=== PATIENT | female | born 1995 | race Caucasian/White ===

== ENCOUNTER 2016-09-13 23:16 | Emergency (ER) | payer OTHER ==
[~2016-09-13] VITALS: Ht 165.1 cm; Wt 71.0 kg
[2016-09-14] MEDS ORDERED: SODIUM CHLORIDE 0.9% 1,000 ML IV ONE (01:05)
[2016-09-14] MEDS ORDERED: ONDANSETRON HCL 4MG/2ML VIAL IV STA (01:05)
[2016-09-14] MEDS ORDERED: KETOROLAC 30MG/ML VIAL IV STA (01:05)
[2016-09-14] MEDS ORDERED: DIPHENHYDRAMINE 50MG/ML VIAL IV ONE (01:15)
[2016-09-14 01:26] LABS: CHLORIDE 106 mEq/L (98-107); INDEX HEMOLYSI 1 (1-3); INDEX ICTERIC 1 (1-4); INDEX LIPEMIC 1 (1-3)
[2016-09-14 01:28] LABS: BASOPHILS % 0.7 % (0.0-2.0); EOSINOPHILS % 5.3 % (0.0-5.0); HEMOGLOBIN. 14.4 g/dL (12.0-16.0); LYMPHOCYTES % 34.6 % (20.0-50.0); MEAN CORPUSCULAR HEMOGLOBIN 29.3 pg (28.0-32.0); MEAN CORPUSCULAR HGB CONC 33.4 g/dL (31.0-37.0); MEAN CORPUSCULAR VOLUME 87.8 fL (81.0-99.0); MEAN PLATELET VOLUME 7.5 fl (7.4-10.4); MONOCYTES % 8.7 % (2.0-8.0); NEUTROPHILS % 50.7 % (40.0-76.0); PLATELET 269 x1000/uL (130-400); RED BLOOD CELL COUNT 4.89 mill/uL (4.2-5.4); RED CELL DISTRIBUTION WIDTH 13.3 % (11.6-14.6); WHITE BLOOD COUNT 9.8 x1000/uL (4.5-11.0)
[2016-09-14 01:32] LABS: HCG SCREEN NEGATIVE
[2016-09-14 01:35] LABS: ALANINE AMINOTRANSFERASE 40 IU/L (13-61); ALBUMIN 3.6 g/dL (3.4-5.0); ANION GAP 12; CALCIUM 8.8 mg/dL (8.5-10.1); CARBON DIOXIDE 30 mEq/L (21-32); UREA NITROGEN BLOOD 11 mg/dL (7-21); eGFR > 60 mL/min (>60)
[2016-09-14 04:22] VITALS: BP 107/66
== END 2016-09-14 04:00 | disposition home or self-care (01) ==
LOC: ER 23:16
DX: R07.9 Chest pain, unspecified (principal); R51 Headache; R42 Dizziness and giddiness; R06.02 Shortness of breath; R53.1 Weakness
CPT/HCPCS: 36415; 71010; 80053; 84703; 85025; 93005; 96374; 96375; 99285; J1200; J1885; J2405; J7030; Z7610

== ENCOUNTER 2017-03-22 21:44 | Emergency (ER) | payer OTHER ==
[~2017-03-22] VITALS: Ht 134.6 cm; Wt 79.5 kg
[2017-03-23] MEDS ORDERED: SODIUM CHLORIDE 0.9% 1,000 ML IV ONE (00:02)
[2017-03-23] MEDS ORDERED: FAMOTIDINE 20MG/2ML VIAL IV STA (00:02)
[2017-03-23] MEDS ORDERED: ONDANSETRON 4MG ODT PO STA (00:02)
[2017-03-23] MEDS ORDERED: HYDROCODONE/ACETAMINOPHEN 5/325MG TABLET PO STA (00:02)
[2017-03-23] MEDS ORDERED: MAGNESIUM/ALUMINUM HYDROXIDE/SIMETHICONE 30ML UDC PO STA (00:02)
[2017-03-23 00:20] LABS: BASOPHILS % 0.7 % (0.0-2.0); EOSINOPHILS % 2.1 % (0.0-5.0); HEMATOCRIT. 42.8 % (36.0-48.0); HEMOGLOBIN. 14.6 g/dL (12.0-16.0); LYMPHOCYTES % 45.2 % (20.0-50.0); MEAN CORPUSCULAR HEMOGLOBIN 30.1 pg (28.0-32.0); MEAN CORPUSCULAR VOLUME 87.8 fL (81.0-99.0); MEAN PLATELET VOLUME 7.4 fl (7.4-10.4); MONOCYTES % 8.8 % (2.0-8.0); NEUTROPHILS % 43.2 % (40.0-76.0); PLATELET 249 x1000/uL (130-400); RED BLOOD CELL COUNT 4.87 mill/uL (4.2-5.4); RED CELL DISTRIBUTION WIDTH 13.1 % (11.6-14.6)
[2017-03-23 00:25] LABS: CHLORIDE 107 mEq/L (98-107)
[2017-03-23 00:35] LABS: B-HCG QUANTITATIVE < 1 mIU/mL (<3); CARBON DIOXIDE 29 mEq/L (21-32)
[2017-03-23 01:42] LABS: INR 1.1
[2017-03-23 02:09] LABS: GLUCOSE URINE NEGATIVE (NEGATIVE); KETONES URINE NEGATIVE (NEGATIVE); LEUKOCYTE ESTERASE URINE 2+ (NEGATIVE); NITRITE URINE NEGATIVE (NEGATIVE); OCCULT BLOOD URINE NEGATIVE (NEGATIVE); PH URINE 6.5 (4.5-8.0); PROTEIN URINE NEGATIVE (NEGATIVE); SPECIFIC GRAVITY URINE 1.023 (1.005-1.030)
[2017-03-23 02:11] LABS: CLARITY URINE CLOUDY (CLEAR); COLOR URINE YELLOW (YELLOW)
[2017-03-23] MEDS ORDERED: METOCLOPRAMIDE HCL 10MG/2ML VIAL IV ONE (02:15)
[2017-03-23 03:15] VITALS: BP 107/66
== END 2017-03-23 03:15 | disposition home or self-care (01) ==
LOC: ER 22:11
DX: R10.13 Epigastric pain (principal); R07.2 Precordial pain
CPT/HCPCS: 36415; 80053; 81001; 83690; 84702; 85025; 85610; 87077; 87086; 87186; 93005; 96361; 96374; 96375; 99285; J2765; J3490; J7030; Q0162; Z7610

== ENCOUNTER → 2017-03-31 | Emergency (ER) | payer OTHER ==
[~2017-03-31] VITALS: Ht 165.1 cm; Wt 82.0 kg
[~2017-03-31] MED LIST: DICYCLOMINE 10 MG/5 ML ORAL SYR PO STA; MAGNESIUM/ALUMINUM HYDROXIDE/SIMETHICONE 30ML UDC PO STA; ONDANSETRON 4MG ODT PO STA; VISCOUS LIDOCAINE 2% 15 ML UDC PO STA
[2017-03-31 20:52] VITALS: BP 123/84
[2017-03-31 22:09] LABS: CLARITY URINE CLOUDY (CLEAR); COLOR URINE YELLOW (YELLOW); GLUCOSE URINE NEGATIVE (NEGATIVE); KETONES URINE NEGATIVE (NEGATIVE); LEUKOCYTE ESTERASE URINE 2+ (NEGATIVE); NITRITE URINE NEGATIVE (NEGATIVE); OCCULT BLOOD URINE NEGATIVE (NEGATIVE); PH URINE 7.5 (4.5-8.0); PROTEIN URINE TRACE (NEGATIVE)
[2017-03-31 23:28] LABS: BASOPHILS % 0.8 % (0.0-2.0); EOSINOPHILS % 3.1 % (0.0-5.0); HEMATOCRIT. 43.2 % (36.0-48.0); HEMOGLOBIN. 14.7 g/dL (12.0-16.0); LYMPHOCYTES % 41.1 % (20.0-50.0); MEAN CORPUSCULAR HEMOGLOBIN 29.9 pg (28.0-32.0); MEAN CORPUSCULAR VOLUME 88.1 fL (81.0-99.0); MEAN PLATELET VOLUME 7.3 fl (7.4-10.4); MONOCYTES % 8.9 % (2.0-8.0); NEUTROPHILS % 46.1 % (40.0-76.0); PLATELET 253 x1000/uL (130-400); RED CELL DISTRIBUTION WIDTH 13.1 % (11.6-14.6)
[2017-03-31 23:34] LABS: INR 1.1
[2017-03-31 23:35] LABS: CHLORIDE 106 mEq/L (98-107)
[2017-03-31 23:36] LABS: HCG SCREEN NEGATIVE
[2017-03-31 23:46] LABS: CARBON DIOXIDE 29 mEq/L (21-32)
== END ==
LOC: ER 20:48
DX: N39.0 Urinary tract infection, site not specified (principal); R51 Headache; R19.7 Diarrhea, unspecified; R42 Dizziness and giddiness
CPT/HCPCS: 36415; 76705; 80053; 81001; 83690; 84703; 85025; 85610; 99285

== ENCOUNTER 2017-08-04 08:40 | Emergency (ER) | payer OTHER ==
[~2017-08-04] VITALS: Ht 165.1 cm; Wt 82.0 kg
[2017-08-04 11:22] LABS: CLARITY URINE CLEAR (CLEAR); COLOR URINE YELLOW (YELLOW); KETONES URINE NEGATIVE (NEGATIVE); LEUKOCYTE ESTERASE URINE 2+ (NEGATIVE); NITRITE URINE NEGATIVE (NEGATIVE); OCCULT BLOOD URINE TRACE (NEGATIVE); PROTEIN URINE NEGATIVE (NEGATIVE); SPECIFIC GRAVITY URINE 1.023 (1.005-1.030); UROBILINOGEN URINE 0.2 E.U./dL (0.2-1.0)
[2017-08-04] MEDS ORDERED: IBUPROFEN 600MG TABLET PO ONE (14:00)
[2017-08-04 16:52] VITALS: BP 100/62
== END 2017-08-04 16:52 | disposition home or self-care (01) ==
LOC: ER 09:30
DX: N39.0 Urinary tract infection, site not specified (principal)
CPT/HCPCS: 81003; 81025; 87086; 87210; 99284

== ENCOUNTER 2018-03-11 21:32 | Observation (INO) | payer OTHER ==
[~2018-03-11] VITALS: Ht 162.6 cm; Wt 82.1 kg
[2018-03-11] MEDS ORDERED: PNV1TABL50 MT (22:36)
[2018-03-11] MEDS ORDERED: FOLI0.4T2 MT (22:36)
== END 2018-03-11 22:00 ==
LOC: L&D 21:32
PROVIDERS: ADMIT Obstetrics & Gynecology; ATTEND Obstetrics & Gynecology
DX: O99.512 Diseases of the respiratory system complicating pregnancy, second trimester (principal); R07.89 Other chest pain; R06.02 Shortness of breath; R10.13 Epigastric pain; R51 Headache; M54.5 Low back pain; Z3A.22 22 weeks gestation of pregnancy
CPT/HCPCS: 99281; G0378

== ENCOUNTER 2018-03-11 22:14 | Emergency (ER) | payer OTHER ==
[~2018-03-11] VITALS: Ht 162.6 cm; Wt 82.0 kg
[2018-03-11] MEDS ORDERED: PNV1TABL50 MT (22:36)
[2018-03-11] MEDS ORDERED: FOLI0.4T2 MT (22:36)
[2018-03-11] MEDS ORDERED: ONDANSETRON HCL 4MG/2ML INJ IV STA (22:49)
[2018-03-11] MEDS ORDERED: MORPHINE SULFATE 4 MG/ML CPJ (NOT FOR IM USE) IV STA (22:49)
[2018-03-11] MEDS ORDERED: SODIUM CHLORIDE 0.9% 1,000 ML IV ONE (22:49)
[2018-03-11] MEDS ORDERED: FAMOTIDINE 20MG/2ML VIAL IV ONE (23:00)
[2018-03-11] MEDS ORDERED: MAGNESIUM/ALUMINUM HYDROXIDE/SIMETHICONE 30ML UDC PO ONE (23:00)
[2018-03-11 23:27] LABS: BASOPHILS % 0.2 % (0.0-2.0); EOSINOPHILS % 1.4 % (0.0-5.0); HEMOGLOBIN. 13.8 g/dL (12.0-16.0); MEAN CORPUSCULAR HEMOGLOBIN 29.8 pg (28.0-32.0); MEAN CORPUSCULAR VOLUME 88.1 fL (81.0-99.0); MEAN PLATELET VOLUME 8.2 fl (7.4-10.4); MONOCYTES % 7.8 % (2.0-8.0); NEUTROPHILS % 72.6 % (40.0-76.0); PLATELET 220 x1000/uL (130-400); RED BLOOD CELL COUNT 4.65 mill/uL (4.2-5.4); RED CELL DISTRIBUTION WIDTH 14.1 % (11.6-14.6)
[2018-03-11 23:32] LABS: CHLORIDE 104 mEq/L (98-107)
[2018-03-11 23:42] LABS: B-HCG QUANTITATIVE 511 mIU/mL (<3)
[2018-03-11 23:53] LABS: PARTIAL THROMBOPLASTIN TIME 27.3 sec (23.4-31.0); PROTHROMBIN TIME 9.9 sec (9.1-11.1)
[2018-03-11 23:59] LABS: CLARITY URINE CLOUDY (CLEAR); COLOR URINE YELLOW (YELLOW); KETONES URINE NEGATIVE (NEGATIVE); LEUKOCYTE ESTERASE URINE TRACE (NEGATIVE); NITRITE URINE NEGATIVE (NEGATIVE); OCCULT BLOOD URINE 1+ (NEGATIVE); PH URINE 8.5 (4.5-8.0); PROTEIN URINE NEGATIVE (NEGATIVE); SPECIFIC GRAVITY URINE 1.007 (1.005-1.030); UROBILINOGEN URINE 0.2 E.U./dL (0.2-1.0)
[2018-03-12 01:50] VITALS: BP 110/63
== END 2018-03-12 01:50 | disposition home or self-care (01) ==
LOC: ER 22:14
DX: O26.892 Other specified pregnancy related conditions, second trimester (principal); R10.13 Epigastric pain; R11.0 Nausea; Z3A.22 22 weeks gestation of pregnancy
CPT/HCPCS: 36415; 76705; 76815; 80053; 81003; 83690; 83880; 84484; 84702; 85025; 85610; 85730; 86850; 86900; 86901; 93005; 96374; 96375; 99285; J2270; J2405; J3490; J7030; Z7610

== ENCOUNTER 2018-05-22 18:56 | Observation (INO) | payer OTHER ==
[~2018-05-22] VITALS: Ht 162.6 cm; Wt 83.5 kg
[~2018-05-22 18:56] MED LIST changes: -DICYCLOMINE 10 MG/5 ML ORAL SYR PO STA; +FOLI0.4T2 MT; -MAGNESIUM/ALUMINUM HYDROXIDE/SIMETHICONE 30ML UDC PO STA; -ONDANSETRON 4MG ODT PO STA; +PNV1TABL50 MT; -VISCOUS LIDOCAINE 2% 15 ML UDC PO STA
[2018-05-22] MEDS ORDERED: ACET-2708 MT (19:42)
[2018-05-22] MEDS ORDERED: ONDANSETRON HCL 4MG/2ML INJ IV ONE (20:00)
[2018-05-22] MEDS: LACTATED RINGERS 1,000 ML IV SCH ×2 (21:00→22:31)
[2018-05-22 21:41] LABS: CLARITY URINE CLOUDY (CLEAR); COLOR URINE DARK YELLOW (YELLOW); KETONES URINE 1+ (NEGATIVE); LEUKOCYTE ESTERASE URINE 2+ (NEGATIVE); NITRITE URINE NEGATIVE (NEGATIVE); OCCULT BLOOD URINE NEGATIVE (NEGATIVE); PROTEIN URINE TRACE (NEGATIVE); SPECIFIC GRAVITY URINE 1.022 (1.005-1.030)
[2018-05-22] MEDS ORDERED: TERBUTALINE SULFATE 1MG/ML VIAL SUBCUT PRN (22:30)
== END 2018-05-23 00:50 | disposition home or self-care (01) ==
LOC: 8 EST LDRP 18:56
PROVIDERS: ADMIT Obstetrics & Gynecology; ATTEND Obstetrics & Gynecology
DX: O21.2 Late vomiting of pregnancy (principal); O26.893 Other specified pregnancy related conditions, third trimester; R10.13 Epigastric pain; Z3A.33 33 weeks gestation of pregnancy
CPT/HCPCS: 81003; 82731; 96361; 96372; 96374; 99281; G0378; J2405; J3105; 96360; J7120

== ENCOUNTER 2018-05-23 18:26 | Observation (INO) | payer OTHER ==
[~2018-05-23] VITALS: Ht 162.6 cm; Wt 83.5 kg
[~2018-05-23 18:26] MED LIST changes: +ACET-2708 MT
[2018-05-23] MEDS ORDERED: LACTATED RINGERS 1,000 ML IV SCH (20:15)
[2018-05-23] MEDS ORDERED: ONDANSETRON HCL 4MG/2ML INJ IV ONE (20:15)
[2018-05-23] MEDS ORDERED: ACETAMINOPHEN 500MG TABLET PO ONE (20:30)
== END 2018-05-23 22:10 | disposition home or self-care (01) ==
LOC: 8 EST LDRP 18:26
PROVIDERS: ADMIT Obstetrics & Gynecology; ATTEND Obstetrics & Gynecology
DX: O26.893 Other specified pregnancy related conditions, third trimester (principal); R10.13 Epigastric pain; O21.2 Late vomiting of pregnancy; Z3A.33 33 weeks gestation of pregnancy
CPT/HCPCS: 96361; 96374; 99281; G0378; J2405; 96360

== ENCOUNTER 2018-07-13 18:08 | Inpatient (IN) | payer OTHER ==
[~2018-07-13] VITALS: Ht 162.6 cm; Wt 84.8 kg
[2018-07-13] MEDS ORDERED: LIDOCAINE HCL 1% 20ML VIAL (Pyxis) INJ INFIL SCH (19:00)
[2018-07-13] MEDS ORDERED: DEXT 5%/LR + PITOCIN 20UNITS/L 1,000 ML IV SCH (19:00)
[2018-07-13] MEDS ORDERED: METHYLERGONOVINE MALEATE 0.2 MG/ML IM PRN (19:00)
[2018-07-13] MEDS ORDERED: BUTORPHANOL TARTRATE 2 MG/ML VIAL IV PRN (19:00)
[2018-07-13] MEDS ORDERED: CARBOPROST TROMETHAMINE 250 MCG/ML AMPUL IM PRN (19:00)
[2018-07-13] MEDS ORDERED: NALOXONE HCL 0.4 MG/ML 1ML VIAL IM PRN (19:00)
[2018-07-13] MEDS: LACTATED RINGERS 1,000 ML IV SCH ×2 (19:30→21:05)
[2018-07-13 20:26] LABS: BASOPHILS % 0.4 % (0.0-2.0); EOSINOPHILS % 0.9 % (0.0-5.0); HEMATOCRIT. 39.6 % (36.0-48.0); HEMOGLOBIN. 13.3 g/dL (12.0-16.0); LYMPHOCYTES % 17.8 % (20.0-50.0); MEAN CORPUSCULAR HEMOGLOBIN 29.4 pg (28.0-32.0); MEAN CORPUSCULAR VOLUME 87.9 fL (81.0-99.0); MEAN PLATELET VOLUME 9.1 fl (7.4-10.4); MONOCYTES % 8.7 % (2.0-8.0); NEUTROPHILS % 72.2 % (40.0-76.0); PLATELET 205 x1000/uL (130-400); RED CELL DISTRIBUTION WIDTH 13.8 % (11.6-14.6)
[2018-07-13 20:33] LABS: CLARITY URINE CLOUDY (CLEAR); COLOR URINE DARK YELLOW (YELLOW); KETONES URINE 3+ (NEGATIVE); LEUKOCYTE ESTERASE URINE 1+ (NEGATIVE); NITRITE URINE NEGATIVE (NEGATIVE); OCCULT BLOOD URINE NEGATIVE (NEGATIVE); PH URINE 6.5 (4.5-8.0); PROTEIN URINE 1+ (NEGATIVE); SPECIFIC GRAVITY URINE 1.025 (1.005-1.030)
[2018-07-13 20:35] LABS: INR 0.9; PARTIAL THROMBOPLASTIN TIME 27.3 sec (23.4-31.0); PROTHROMBIN TIME 9.4 sec (9.1-11.1)
[2018-07-13 20:46] LABS: CANNABINOID URINE SCREEN NEGATIVE (NEGATIVE); PHENCYCLIDINE URINE SCREEN NEGATIVE (NEGATIVE)
[2018-07-13 20:48] LABS: *AMPHETAMINES SCREEN URINE NEGATIVE (NEGATIVE); *BARBITURATES SCREEN URINE NEGATIVE (NEGATIVE); *BENZODIAZEPINES SCREEN URINE NEGATIVE (NEGATIVE); *COCAINE SCREEN URINE NEGATIVE (NEGATIVE); METHADONE URINE SCREEN NEGATIVE (NEGATIVE); OPIATES URINE SCREEN NEGATIVE (NEGATIVE)
[2018-07-13 21:04] LABS: HEPATITIS B SURFACE ANTIGEN NEGATIVE
[2018-07-13] MEDS ORDERED: BUPIVACAINE HCL/NS/PF EPIDURAL 100 ML EP SCH (23:45)
[2018-07-13] MEDS ORDERED: FENTANYL CITRATE/PF 50MCG/ML 5ML VIAL ONE (23:58)
[2018-07-13] MEDS ORDERED: BUPIVACAINE HCL/PF 0.25% (2.5MG/ML) 10ML ONE (23:58)
[2018-07-14] MEDS ORDERED: DEXT 5%/LR + PITOCIN 20UNITS/L 1,000 ML IV SCH (02:43)
[2018-07-14] MEDS ORDERED: IBUPROFEN 400MG TABLET PO PRN (02:45)
[2018-07-14] MEDS ORDERED: GLYCERIN/WITCH HAZEL LEAF MEDICATED PAD TOP PRN (02:45)
[2018-07-14] MEDS ORDERED: BENZOCAINE/LANOLIN/ALOE VERA SPRAY TOP PRN (02:45)
[2018-07-14] MEDS ORDERED: DIPHENHYDRAMINE 25MG CAPSULE PO PRN (02:45)
[2018-07-14] MEDS ORDERED: LANOLIN OINT 0.25 GM TUBE TOP PRN (02:45)
[2018-07-14] MEDS ORDERED: HEMORRHOIDAL SUPP PR PRN (02:45)
[2018-07-14] MEDS ORDERED: BISACODYL 10MG SUPP PR PRN (02:45)
[2018-07-14] MEDS: ACETAMINOPHEN WITH CODEINE 300/30MG TABLET PO PRN ×2 (05:09→09:44)
[2018-07-14 07:30] VITALS: BP 111/73
[2018-07-14] MEDS: PRENATAL VIT/FE FUMARATE/FA TABLET PO SCH (09:31)
[2018-07-14] MEDS: IBUPROFEN 800MG TABLET PO PRN (09:31)
[2018-07-14 10:09] LABS: BASOPHILS % 0.2 % (0.0-2.0); EOSINOPHILS % 0.8 % (0.0-5.0); HEMATOCRIT. 39.4 % (36.0-48.0); LYMPHOCYTES % 14.5 % (20.0-50.0); MEAN CORPUSCULAR HEMOGLOBIN 29.1 pg (28.0-32.0); MEAN CORPUSCULAR VOLUME 88.2 fL (81.0-99.0); MEAN PLATELET VOLUME 9.3 fl (7.4-10.4); MONOCYTES % 10.9 % (2.0-8.0); NEUTROPHILS % 73.6 % (40.0-76.0); PLATELET 224 x1000/uL (130-400); RED BLOOD CELL COUNT 4.47 mill/uL (4.2-5.4); RED CELL DISTRIBUTION WIDTH 13.7 % (11.6-14.6)
[2018-07-14 15:00] VITALS: BP 113/80
[2018-07-14 20:00] VITALS: BP 120/83
[2018-07-14] MEDS: DOCUSATE SODIUM 100MG CAPSULE PO SCH (21:39)
[2018-07-15] MEDS: ACETAMINOPHEN WITH CODEINE 300/30MG TABLET PO PRN ×2 (01:14→19:29)
[2018-07-15 04:00] VITALS: BP 114/86
[2018-07-15] MEDS: PRENATAL VIT/FE FUMARATE/FA TABLET PO SCH (07:36)
[2018-07-15] MEDS: FERROUS SULFATE 325MG TABLET PO SCH ×2 (07:36→15:17)
[2018-07-15] MEDS: IBUPROFEN 800MG TABLET PO PRN ×2 (07:36→15:21)
[2018-07-15 08:20] VITALS: BP 104/66
[2018-07-15] MEDS ORDERED: TETANUS, DIPHTHERIA, PERTUSSIS VAC/PF 0.5ML (>7YR OLD) IM ONE (09:00)
[2018-07-15] MEDS ORDERED: INFLUENZA VIRUS VACCINE(AFLURIA) 0.5ML SYR IM ONE (09:00)
[2018-07-15 11:00] VITALS: BP 104/66
[2018-07-15 17:09] VITALS: BP 113/80
[2018-07-15 20:00] VITALS: BP 122/77
[2018-07-15] MEDS: DOCUSATE SODIUM 100MG CAPSULE PO SCH (21:54)
[2018-07-16] MEDS: IBUPROFEN 800MG TABLET PO PRN ×2 (03:56→08:44)
[2018-07-16 04:00] VITALS: BP 115/73
[2018-07-16 08:00] VITALS: BP 93/50
[2018-07-16] MEDS: PRENATAL VIT/FE FUMARATE/FA TABLET PO SCH (08:44)
== END 2018-07-16 11:50 | disposition home or self-care (01) | DRG 560 ==
LOC: 8 EST LDRP 18:08 → OBSVTOIN 18:08 → 8EST 07-14 04:20
PROVIDERS: ADMIT Specialist; ATTEND Specialist
PROC: 10D07Z6 Extraction of Products of Conception, Vacuum, Via Natural or Artificial Opening (ICD-10-PCS; principal; 2018-07-14)
PROC: 0W8NXZZ Division of Female Perineum, External Approach (ICD-10-PCS; 2018-07-14)
PROC: 3E0R3BZ Introduction of Anesthetic Agent into Spinal Canal, Percutaneous Approach (ICD-10-PCS; 2018-07-14)
PROC: 00HU33Z Insertion of Infusion Device into Spinal Canal, Percutaneous Approach (ICD-10-PCS; 2018-07-14)
DX: O99.613 Diseases of the digestive system complicating pregnancy, third trimester (principal); O76 Abnormality in fetal heart rate and rhythm complicating labor and delivery; Z37.0 Single live birth; Z3A.40 40 weeks gestation of pregnancy; O66.5 Attempted application of vacuum extractor and forceps
CPT/HCPCS: 36415; 80305; 86592; 86703; 86762; 86850; 86900; 87340; 90686; 90715; 99281; G0378; J0595; J2590; J3010; J3490; J7120

== ENCOUNTER 2019-07-03 18:39 | Emergency (ER) | payer OTHER ==
[~2019-07-03] VITALS: Ht 172.7 cm; Wt 77.0 kg
[~2019-07-03 18:39] MED LIST changes: -ACET-2708 MT
[2019-07-03] MEDS ORDERED: ACETAMINOPHEN 325MG TABLET PO ONE (20:15)
[2019-07-03 20:30] VITALS: BP 121/75
== END 2019-07-03 20:47 | disposition home or self-care (01) ==
LOC: ER 18:52
DX: S09.8XXA Other specified injuries of head, initial encounter (principal); S30.0XXA Contusion of lower back and pelvis, initial encounter; W01.0XXA Fall on same level from slipping, tripping and stumbling without subsequent striking against object, initial encounter; Y93.89 Activity, other specified; Y92.018 Other place in single-family (private) house as the place of occurrence of the external cause
CPT/HCPCS: 99283

== ENCOUNTER 2019-08-28 16:51 | Emergency (ER) | payer OTHER ==
[~2019-08-28] VITALS: Ht 165.1 cm; Wt 77.0 kg
[2019-08-28] MEDS ORDERED: MAGNESIUM/ALUMINUM HYDROXIDE/SIMETHICONE 30ML UDC PO STA (18:24)
[2019-08-28] MEDS ORDERED: VISCOUS LIDOCAINE 2% 15 ML UDC PO STA (18:24)
[2019-08-28] MEDS ORDERED: DICYCLOMINE HCL 10MG CAPSULE PO ONE (18:30)
[2019-08-28 19:01] LABS: BASOPHILS % 0.5 % (0.0-2.0); HEMATOCRIT. 42.9 % (36.0-48.0); HEMOGLOBIN. 14.6 g/dL (12.0-16.0); LYMPHOCYTES % 29.3 % (20.0-50.0); MEAN CORPUSCULAR HEMOGLOBIN 30.1 pg (28.0-32.0); MEAN CORPUSCULAR VOLUME 88.5 fL (81.0-99.0); MEAN PLATELET VOLUME 7.5 fl (7.4-10.4); MONOCYTES % 9.6 % (2.0-8.0); NEUTROPHILS % 58.6 % (40.0-76.0); PLATELET 289 x1000/uL (130-400); RED BLOOD CELL COUNT 4.85 mill/uL (4.2-5.4)
[2019-08-28 19:07] LABS: CHLORIDE 104 mEq/L (98-107); PROTHROMBIN TIME 10.8 sec (9.6-11.0)
[2019-08-28 19:11] LABS: HCG SCREEN NEGATIVE
[2019-08-28 20:02] LABS: CLARITY URINE CLOUDY (CLEAR); COLOR URINE YELLOW (YELLOW); KETONES URINE 1+ (NEGATIVE); LEUKOCYTE ESTERASE URINE 1+ (NEGATIVE); NITRITE URINE NEGATIVE (NEGATIVE); OCCULT BLOOD URINE NEGATIVE (NEGATIVE); PROTEIN URINE NEGATIVE (NEGATIVE); SPECIFIC GRAVITY URINE 1.024 (1.005-1.030); UROBILINOGEN URINE 0.2 E.U./dL (0.2-1.0)
[2019-08-28] MEDS ORDERED: IBUPROFEN 600MG TABLET PO STA (20:02)
[2019-08-28] MEDS ORDERED: LIDOCAINE HCL 1% 20ML VIAL (Pyxis) INJ INFIL ONE (21:00)
[2019-08-28] MEDS ORDERED: CEFTRIAXONE SODIUM 1 G/VIAL IM ONE (21:00)
[2019-08-28 21:56] VITALS: BP 114/63
== END 2019-08-28 22:03 | disposition home or self-care (01) ==
LOC: ER 16:51
DX: N30.00 Acute cystitis without hematuria (principal); K80.20 Calculus of gallbladder without cholecystitis without obstruction; R03.0 Elevated blood-pressure reading, without diagnosis of hypertension
CPT/HCPCS: 36415; 76705; 80053; 81003; 83690; 84703; 85025; 85610; 96372; 99284; J0696; J3490

== ENCOUNTER 2021-03-29 16:54 | Emergency (ER) | payer MEDICAID, OTHER ==
[~2021-03-29] VITALS: Ht 162.6 cm; Wt 78.0 kg
[~2021-03-29 16:54] MED LIST changes: -FOLI0.4T2 MT; +FOLI0.4T6 MT; +IBUP-2029 MT
[2021-03-29 18:23] LABS: BASOPHILS % 0.3 % (0.0-2.0); HEMATOCRIT. 44.6 % (36.0-48.0); HEMOGLOBIN. 14.7 g/dL (12.0-16.0); LYMPHOCYTES % 12.8 % (20.0-50.0); MEAN CORPUSCULAR HEMOGLOBIN 28.9 pg (28.0-32.0); MEAN CORPUSCULAR VOLUME 87.5 fL (81.0-99.0); MEAN PLATELET VOLUME 7.5 fl (7.4-10.4); MONOCYTES % 8.3 % (2.0-8.0); NEUTROPHILS % 77.6 % (40.0-76.0); PLATELET 263 x1000/uL (130-400); RED BLOOD CELL COUNT 5.09 mill/uL (4.2-5.4); RED CELL DISTRIBUTION WIDTH 13.2 % (11.6-14.6)
[2021-03-29 18:28] LABS: CHLORIDE 103 mEq/L (98-107)
[2021-03-30] MEDS ORDERED: KETOROLAC 30MG/ML VIAL IM ONE (01:45)
[2021-03-30 02:00] LABS: CLARITY URINE CLEAR (CLEAR); COLOR URINE YELLOW (YELLOW); KETONES URINE 2+ (NEGATIVE); LEUKOCYTE ESTERASE URINE 2+ (NEGATIVE); NITRITE URINE NEGATIVE (NEGATIVE); OCCULT BLOOD URINE NEGATIVE (NEGATIVE); PROTEIN URINE NEGATIVE (NEGATIVE); SPECIFIC GRAVITY URINE 1.023 (1.005-1.030)
[2021-03-30] MEDS ORDERED: IBUP-2028 MT (02:18)
[2021-03-30] MEDS ORDERED: ONDA4TAB5 MT (02:18)
[2021-03-30 02:35] VITALS: BP 94/59
== END 2021-03-30 02:36 | disposition home or self-care (01) ==
LOC: ER 16:54
DX: R10.11 Right upper quadrant pain (principal); K80.20 Calculus of gallbladder without cholecystitis without obstruction
CPT/HCPCS: 36415; 76705; 80053; 81003; 81025; 83690; 85025; 96372; 99284; J1885

== ENCOUNTER 2021-07-29 19:49 | Emergency (ER) | payer MEDICAID, OTHER ==
[~2021-07-29] VITALS: Ht 162.6 cm; Wt 81.0 kg
[~2021-07-29 19:49] MED LIST changes: +IBUP-2028 MT; +ONDA4TAB5 MT
[2021-07-29 19:53] VITALS: BP 115/74
[2021-07-29] MEDS ORDERED: ACETAMINOPHEN 325MG TABLET PO STA (23:20)
[2021-07-29 23:50] LABS: BASOPHILS % 0.8 % (0.0-2.0); EOSINOPHILS % 3.6 % (0.0-5.0); HEMATOCRIT. 44.2 % (36.0-48.0); HEMOGLOBIN. 14.8 g/dL (12.0-16.0); LYMPHOCYTES % 36.8 % (20.0-50.0); MEAN CORPUSCULAR HEMOGLOBIN 29.2 pg (28.0-32.0); MEAN CORPUSCULAR VOLUME 87.1 fL (81.0-99.0); MEAN PLATELET VOLUME 7.5 fl (7.4-10.4); MONOCYTES % 9.1 % (2.0-8.0); NEUTROPHILS % 49.7 % (40.0-76.0); PLATELET 287 x1000/uL (130-400); RED BLOOD CELL COUNT 5.07 mill/uL (4.2-5.4); RED CELL DISTRIBUTION WIDTH 13.9 % (11.6-14.6)
[2021-07-29 23:56] LABS: CHLORIDE 107 mEq/L (98-107)
[2021-07-30 00:03] LABS: HCG SCREEN NEGATIVE
[2021-07-30] MEDS ORDERED: HYDR-4001 MT (02:03)
== END 2021-07-30 02:18 | disposition home or self-care (01) ==
LOC: ER 19:49
DX: K80.80 Other cholelithiasis without obstruction (principal)
CPT/HCPCS: 36415; 76700; 80053; 84703; 85025; 93005; 99285

== ENCOUNTER 2022-07-04 18:21 | Emergency (ER) | payer MEDICAID, OTHER ==
[~2022-07-04] VITALS: Ht 162.6 cm; Wt 82.0 kg
[~2022-07-04 18:21] MED LIST changes: +HYDR-4001 MT
[2022-07-04] MEDS ORDERED: KETOROLAC 60MG/2ML VIAL IM STA (20:35)
[2022-07-04] MEDS ORDERED: LORAZEPAM 1MG TABLET PO ONE (20:45)
[2022-07-04 21:36] VITALS: BP 112/69
[2022-07-04 21:55] LABS: CLARITY URINE CLOUDY (CLEAR); COLOR URINE YELLOW (YELLOW); KETONES URINE NEGATIVE (NEGATIVE); LEUKOCYTE ESTERASE URINE TRACE (NEGATIVE); NITRITE URINE NEGATIVE (NEGATIVE); OCCULT BLOOD URINE NEGATIVE (NEGATIVE); PROTEIN URINE NEGATIVE (NEGATIVE); SPECIFIC GRAVITY URINE 1.015 (1.005-1.030); UROBILINOGEN URINE 0.2 E.U./dL (0.2-1.0)
[2022-07-04] MEDS ORDERED: IBUP-2029 MT (23:20)
[2022-07-04] MEDS ORDERED: CEPH500C2 MT (23:20)
[2022-07-04] MEDS ORDERED: CYCL10TA21 MT (23:20)
== END 2022-07-04 23:33 | disposition home or self-care (01) ==
LOC: ER 18:21
DX: M54.50 Low back pain, unspecified (principal); Z90.49 Acquired absence of other specified parts of digestive tract
CPT/HCPCS: 81003; 81025; 96372; 99283; J1885

== ENCOUNTER 2022-09-05 17:00 | Emergency (ER) | payer MEDICAID ==
[~2022-09-05] VITALS: Ht 162.6 cm; Wt 73.0 kg
[~2022-09-05 17:00] MED LIST changes: +CEPH500C2 MT; +CYCL10TA21 MT
[2022-09-05 17:35] LABS: EOSINOPHILS % 2.9 % (0.0-5.0); HEMATOCRIT. 45.7 % (36.0-48.0); HEMOGLOBIN. 15.4 g/dL (12.0-16.0); LYMPHOCYTES % 52.6 % (20.0-50.0); MEAN CORPUSCULAR HEMOGLOBIN 30.3 pg (28.0-32.0); MEAN CORPUSCULAR VOLUME 89.7 fL (81.0-99.0); MEAN PLATELET VOLUME 8.5 fl (7.4-10.4); MONOCYTES % 9.1 % (2.0-8.0); NEUTROPHILS % 34.4 % (40.0-76.0); PLATELET 265 x1000/uL (130-400); RED BLOOD CELL COUNT 5.09 mill/uL (4.2-5.4); RED CELL DISTRIBUTION WIDTH 13.9 % (11.6-14.6)
[2022-09-05 17:49] LABS: CHLORIDE 105 mEq/L (98-107)
[2022-09-05 17:56] LABS: HCG SCREEN NEGATIVE
[2022-09-05] MEDS ORDERED: IBUPROFEN 600MG TABLET PO STA (18:13)
[2022-09-05] MEDS ORDERED: IBUP-2029 MT (18:57)
[2022-09-05 19:30] VITALS: BP 127/86
== END 2022-09-05 19:31 | disposition home or self-care (01) ==
LOC: ER 17:00
DX: R07.89 Other chest pain (principal); Z79.899 Other long term (current) drug therapy
CPT/HCPCS: 36415; 71045; 80053; 84703; 85025; 93005; 99285

== ENCOUNTER 2023-06-11 19:57 | Emergency (ER) | payer MEDICAID, OTHER ==
[~2023-06-11] VITALS: Ht 162.6 cm; Wt 75.0 kg
[2023-06-11 20:45] LABS: EOSINOPHILS % 2.6 % (0.0-5.0); HEMATOCRIT. 43.3 % (36.0-48.0); HEMOGLOBIN. 14.5 g/dL (12.0-16.0); LYMPHOCYTES % 46.6 % (20.0-50.0); MEAN CORPUSCULAR HEMOGLOBIN 30.3 pg (28.0-32.0); MEAN CORPUSCULAR HGB CONC 33.5 g/dL (31.0-37.0); MEAN CORPUSCULAR VOLUME 90.4 fL (81.0-99.0); MEAN PLATELET VOLUME 7.5 fl (7.4-10.4); MONOCYTES % 9.3 % (2.0-8.0); NEUTROPHILS % 40.5 % (40.0-76.0); PLATELET 262 x1000/uL (130-400); RED BLOOD CELL COUNT 4.79 mill/uL (4.2-5.4); RED CELL DISTRIBUTION WIDTH 12.8 % (11.6-14.6); WHITE BLOOD COUNT 6.9 x1000/uL (4.5-11.0)
[2023-06-11 20:53] VITALS: BP 121/67; PULSE 76; RESP 16; TEMP 98.4; O2SAT 98
[2023-06-11 21:03] LABS: ALANINE AMINOTRANSFERASE 11 IU/L (10-49); ALBUMIN 4.2 g/dL (3.2-4.8); ASPARTATE AMINOTRANSFERASE 15 IU/L (<34); BILIRUBIN TOTAL 0.7 mg/dL (0.1-1.0); CALCIUM 9.3 mg/dL (8.7-10.4); CARBON DIOXIDE 25 mEq/L (21-32); CHLORIDE 107 mEq/L (98-107); CREATININE 0.6 mg/dL (0.6-1.0); GLUCOSE 90 mg/dL (70-105); POTASSIUM 4.3 mEq/L (3.5-5.1); PROTEIN TOTAL 7.7 g/dL (6.0-8.3); SODIUM 139 mEq/L (136-145); UREA NITROGEN BLOOD 7 mg/dL (9-23)
[2023-06-11 21:42] LABS: CLARITY URINE TURBID (CLEAR); COLOR URINE YELLOW (YELLOW); GLUCOSE URINE NEGATIVE (NEGATIVE); KETONES URINE TRACE (NEGATIVE); LEUKOCYTE ESTERASE URINE 3+ (NEGATIVE); NITRITE URINE NEGATIVE (NEGATIVE); OCCULT BLOOD URINE NEGATIVE (NEGATIVE); PH URINE 8.5 (4.5-8.0); PROTEIN URINE TRACE (NEGATIVE); SPECIFIC GRAVITY URINE 1.018 (1.005-1.030); UROBILINOGEN URINE 0.2 E.U./dL (0.2-1.0)
[2023-06-11 21:59] LABS: BACTERIA URINE 3+; SQUAMOUS EPITHELIAL CELL URINE 2+ /lpf (RARE/1+)
[2023-06-11 22:00] LABS: AMORPHOUS SEDIMENT URINE 2+ /lpf; RBC URINE 0-2 /hpf (0-2)
[2023-06-11 22:01] LABS: UCG QC LOT# 743958; UCG SCREEN NEGATIVE
[2023-06-11] MEDS ORDERED: ONDANSETRON HCL 4MG TABLET PO ONE (23:00)
[2023-06-12] MEDS ORDERED: OMEP20TA23 MT (00:08)
[2023-06-12] MEDS ORDERED: ONDA4TAB50 MT (00:08)
== END 2023-06-12 02:27 | disposition home or self-care (01) ==
LOC: ER 19:57
DX: K21.9 Gastro-esophageal reflux disease without esophagitis (principal); Z79.899 Other long term (current) drug therapy
CPT/HCPCS: 36415; 80053; 81003; 81025; 85025; 99283

== ENCOUNTER 2024-08-04 21:51 | Emergency (ER) | payer SELFPAY ==
[~2024-08-04] VITALS: Ht 175.3 cm; Wt 69.0 kg
[~2024-08-04 21:51] MED LIST changes: +OMEP20TA23 MT; +ONDA4TAB50 MT
[2024-08-04 22:04] VITALS: O2SAT 99
[2024-08-04 23:36] LABS: BASOPHILS % 1.1 % (0.0-2.0); EOSINOPHILS % 2.9 % (0.0-5.0); HEMATOCRIT. 48.9 % (36.0-48.0); HEMOGLOBIN. 15.7 g/dL (12.0-16.0); LYMPHOCYTES % 49.3 % (20.0-50.0); MEAN CORPUSCULAR HEMOGLOBIN 29.1 pg (28.0-32.0); MEAN CORPUSCULAR HGB CONC 32.1 g/dL (31.0-37.0); MEAN CORPUSCULAR VOLUME 90.5 fL (81.0-99.0); MEAN PLATELET VOLUME 7.7 fl (7.4-10.4); MONOCYTES % 7.1 % (2.0-8.0); NEUTROPHILS % 39.6 % (40.0-76.0); PLATELET 305 x1000/uL (130-400); RED BLOOD CELL COUNT 5.41 mill/uL (4.2-5.4); RED CELL DISTRIBUTION WIDTH 13.3 % (11.6-14.6); WHITE BLOOD COUNT 6.4 x1000/uL (4.5-11.0)
[2024-08-04 23:40] LABS: CARBON DIOXIDE 29 mEq/L (21-32); CHLORIDE 103 mEq/L (98-107); POTASSIUM 4.2 mEq/L (3.5-5.1); SODIUM 141 mEq/L (136-145)
[2024-08-04 23:41] LABS: CALCIUM 9.5 mg/dL (8.7-10.4)
[2024-08-04 23:46] LABS: CREATININE 0.7 mg/dL (0.6-1.0); GLUCOSE 101 mg/dL (70-105); UREA NITROGEN BLOOD 13 mg/dL (9-23)
[2024-08-04 23:47] LABS: ALANINE AMINOTRANSFERASE 29 IU/L (10-49); ASPARTATE AMINOTRANSFERASE 24 IU/L (<34)
[2024-08-04 23:48] LABS: ALBUMIN 4.1 g/dL (3.2-4.8); BILIRUBIN DIRECT 0.1 mg/dL (<=3.0); BILIRUBIN TOTAL 0.5 mg/dL (0.1-1.0); PROTEIN TOTAL 7.4 g/dL (6.0-8.3)
[2024-08-05] MEDS: ACETAMINOPHEN 500MG TABLET PO ONE (00:11)
[2024-08-05] MEDS ORDERED: NAPR-1176 MT (02:28)
[2024-08-05] MEDS: KETOROLAC 15MG/ML VIAL IM ONE (03:07)
[2024-08-05 03:09] VITALS: BP 127/82; PULSE 74; RESP 19; TEMP 36.8; O2SAT 99
[2024-08-05 03:37] LABS: CLARITY URINE CLOUDY (CLEAR); COLOR URINE YELLOW (YELLOW); GLUCOSE URINE NEGATIVE (NEGATIVE); KETONES URINE NEGATIVE (NEGATIVE); LEUKOCYTE ESTERASE URINE 2+ (NEGATIVE); NITRITE URINE NEGATIVE (NEGATIVE); OCCULT BLOOD URINE NEGATIVE (NEGATIVE); PH URINE 5.5 (4.5-8.0); PROTEIN URINE NEGATIVE (NEGATIVE); SPECIFIC GRAVITY URINE 1.027 (1.005-1.030); UROBILINOGEN URINE 0.2 E.U./dL (0.2-1.0)
[2024-08-05 03:52] LABS: HCG SCREEN NEGATIVE
[2024-08-05 05:50] LABS: SQUAMOUS EPITHELIAL CELL URINE FEW /lpf (RARE/1+)
[2024-08-05 05:53] LABS: BACTERIA URINE 2+
== END 2024-08-05 03:10 | disposition home or self-care (01) ==
LOC: ER 21:58
DX: K80.70 Calculus of gallbladder and bile duct without cholecystitis without obstruction (principal); Z90.49 Acquired absence of other specified parts of digestive tract; Z79.899 Other long term (current) drug therapy
CPT/HCPCS: 80076; 80048; 83690; 85025; 36415; 76700; 99285; 81003; 81025; 84703; 96372; J1885; Z7610